=== PATIENT | male | born 1965 | race Caucasian/White ===

== ENCOUNTER 2021-04-02 19:40 | Emergency (ER) | payer OTHER, MEDICARE, MEDICAID ==
[2021-04-02] MEDS ORDERED: Succinylcholine 200 MG/10 ML MDV IV ONE (19:41)
[2021-04-02] MEDS ORDERED: Propofol 200 MG/20 ML SDV IV ONE (19:41)
[2021-04-02] MEDS ORDERED: Rocuronium 100 MG/10 ML MDV IV ONE (19:41)
[2021-04-02] MEDS ORDERED: ceFAZolin 1 GM Vial IV ONE (19:41)
[2021-04-02] MEDS ORDERED: ceFAZolin 1 GM Vial IVPUSH STA (20:44)
[2021-04-02] MEDS ORDERED: Diphtheria,Pertussis(Acell),Tetanus Vaccine 0.5 ML Syringe IM ONE (20:44)
[2021-04-02] MEDS ORDERED: fentaNYL 100 MCG/2 ML SDV ONE (20:53)
[2021-04-02] MEDS ORDERED: fentaNYL 100 MCG/2 ML SDV IVPUSH ONE (20:56)
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
[2021-04-02] MEDS ORDERED: Iopamidol 755 Mg/ML 100 ML Bottle IV ONE (21:44)
--- NOTE | 2021-04-02 22:26 | PCM.SN.2 ---
- Free Text/Narrative Note: ANESTHESIA SERVICES Date: 04/02/2021 Time: 1945 to 2123 Dx: Trauma Code called for [facility] Rx: Emergency Oral Intubation [81301] Ventilation Assist and Management [[id number]] I was called for a Trauma Code. Upon arrival, the patient was tachycardic, oral airway with a 100% Non-Rebreather on, his pupils were both fixed to the right with the right pupil 1-2 mm bigger and less reactive than the left, breath sounds are clear bilaterally, hypertensive, respiratory rate greater than 20 but irregular, and SpO2 greater than 95%. Please see the nursing chart for vital signs and times for medication. EMERGENCY ADULT INTUBATION: The ED physician requested intubation to protect the airway. He does have a C-collar in place. After 100% oxygen to a SpO2 of 99% plus the front part of the c-collar loosened and neck stabilization by the bag bleacher, I gave 150 mg's of Propofol and 120 mg's of Succinylcholine IV. Using a #3 GlideScope blade, I proceeded to intubate this patient using RSI times 1 attempt with a #8.0 ETT. The tube was placed to a depth of 23 cm with bilateral breath sounds, positive ETCO2 and confirmation later by a chest X-ray. The ETT was secured. Time was 1945 to 1957. VENTILATION ASSIST and MANAGEMENT: After the intubation and placement confirmation, I controlled his breathing rate and delivery O2 per an Ambu-Bag. I kept his ETCO2 above 25 but below 30mmHg. Early on I did sedate him to decrease his BP / ventilation management using bolus doses of Propofol 30 mg's and later 20 mg's IV with the desired results. Prior to managing ventilation for the CT Scan, he received one dose of 50 mg's Rocuronium IV. The patient tolerated the transfer to CT, the procedure and the return trip back. Several times I did check breath sounds without any changes. I continued to ventilate the patient keeping the ETCO2 below 30 mmHg [Right cerebral contusions per CT] until the Care-Flight team arrived and gave report. His pupils did seem to center more with the right pupil just slightly bigger compared to the left and sluggish to light. I did ask the ER physician to order some narcotic since his BP / HR was elevated and Fentanyl was ordered and given by the USER SUPPORT ANALYST SUPERVISOR. This had good results. Audie Briggs [employer], [facility]
[2021-04-03] MEDS ORDERED: Sodium Chloride 0.9% 1,000 ML IV ONE (05:42)
[2021-04-03] MEDS ORDERED: Lactated Ringers 1,000 ML IV ONE (19:41)
== END 2021-04-02 21:32 ==
LOC: FB.ED 19:40
DX: S06.6X0A Traumatic subarachnoid hemorrhage without loss of consciousness, initial encounter (principal); S06.4X0A Epidural hemorrhage without loss of consciousness, initial encounter; S32.599A Other specified fracture of unspecified pubis, initial encounter for closed fracture; S31.31XA Laceration without foreign body of scrotum and testes, initial encounter; N18.9 Chronic kidney disease, unspecified; R79.89 Other specified abnormal findings of blood chemistry; Z23 Encounter for immunization; V29.9XXA Motorcycle rider (driver) (passenger) injured in unspecified traffic accident, initial encounter; Y93.55 Activity, bike riding
CPT/HCPCS: 12002; 31500; 36415; 70450; 71045; 71260; 72125; 72170; 74177; 80053; 82272; 84484; 85025; 85610; 85730; 90471; 90715; 93005; 96374; 96375; 99285; J0330; J2704; J3010; J7030; J7120; Q9967; J0690